=== PATIENT | male | born 1980 | race Caucasian/White ===

== ENCOUNTER 2018-03-08 19:08 | Emergency (ER) | payer OTHER ==
[~2018-03-08] VITALS: Ht 177.8 cm; Wt 104.3 kg
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
--- NOTE | 2018-03-08 19:20 | NUR ---
PRINTER ASSISTANT AT BEDSIDE FOR EVAL.
--- NOTE | 2018-03-08 19:33 | NUR ---
LAB AT BEDSIDE FOR DRAW.
[2018-03-08 19:41] LABS: BASOPHILS % (AUTO) 0.6 % (0.0-2.0); EOSINOPHILS % (AUTO) 1.1 % (0.0-6.0); HEMATOCRIT 48 % (39-51); HEMOGLOBIN 16.9 g/dL (13.5-17.5); LYMPHOCYTES % (AUTO) 28.2 % (20.0-44.0); MEAN CORPUSCULAR HGB CONC 35 g/dl (31.0-36.0); MEAN CORPUSCULAR VOLUME 91 fL (80-96); MONOCYTES # (AUTO) 0.4 /CMM (0.1-1.30); NEUTROPHILS # (AUTO) 4.5 /CMM (1.8-8.9); NEUTROPHILS % (AUTO) 64.1 % (43.0-81.0); PLATELET COUNT (AUTO) 296 /CMM (150-450); RDW COEFFICIENT OF VARIATION 12.5 (11.5-15.0); RED BLOOD CELL COUNT(AUTO) 5.28 MIL/uL (4.5-6.0)
[2018-03-08 19:50] LABS: CALCIUM, SERUM 8.9 mg/dL (8.5-10.1); CREATININE 1.2 mg/dL (0.6-1.3); POTASSIUM 3.3 mmol/L (3.5-5.1)
[2018-03-08 20:07] LABS: ALBUMIN 4.4 g/dL (3.4-5.0); BILIRUBIN,DIRECT 0.1 mg/dL (0.0-0.2); BILIRUBIN,TOTAL 0.3 mg/dL (0.2-1.0); TOTAL PROTEIN, SERUM 8.2 g/dL (6.4-8.2)
[2018-03-08 20:08] LABS: SALICYLATE 2.4 mg/dL (2.8-20.0)
--- NOTE | 2018-03-08 21:00 | NUR ---
PT GIVEN SANDWICH AND WATER.
--- NOTE | 2018-03-08 21:45 | NUR ---
UNBALE TO OBTAINE URINE AT THIS TIME, ER COMPUTER SYSTEMS ANALYST MADE AWARE. NO NEW ORDERS RECEIVED.
[2018-03-08] MEDS ORDERED: TDAP [DIPH/PERTUSSIS/TET] 0.5 ML VIAL IM ONE (22:00)
--- NOTE | 2018-03-08 22:02 | NUR ---
Patient discharged to home in stable condition. Written and verbal after care instructions given. Patient verbalizes understanding of instruction, instructed not to drive. Patient is awake and alert to self, day, and place. Patient ambulatory with a steady gait.
[2018-03-08 22:03] VITALS: BP 138/89
== END 2018-03-08 22:04 | disposition home or self-care (01) ==
LOC: EDSEX 19:10 → ER 19:10
DX: S50.812A Abrasion of left forearm, initial encounter (principal); F10.129 Alcohol abuse with intoxication, unspecified; X58.XXXA Exposure to other specified factors, initial encounter; Y93.89 Activity, other specified; Y92.89 Other specified places as the place of occurrence of the external cause; Y99.8 Other external cause status
CPT/HCPCS: 36415; 80048-TC; 80076-TC; 85025-TC; A4606; G0480; Z7610